=== PATIENT | female | born 1995 | race Two or more races ===

== ENCOUNTER 2024-03-16 13:04 | Emergency (ER) | payer OTHER ==
[~2024-03-16] VITALS: Ht 172.7 cm; Wt 127.0 kg
[2024-03-16 14:36] LABS: HEMATOCRIT 36.2 % (36.0-45.00); HEMOGLOBIN 11.8 g/dL (12.0-15.00); MEAN CELL VOLUME 76.1 fL (80.00-100.00); MEAN CORPUSCULAR HEMOGLOBIN 24.7 pg (27.00-32.0); MEAN CORPUSCULAR HGB CONC 32.5 g/dl (32.0-36.0); PLATELET COUNT 401 K/uL (150-450); RED BLOOD COUNT 4.76 M/uL (4.00-6.00); RED CELL DISTRIBUTION WIDTH 16.8 % (11.5-14.5)
[2024-03-16 15:11] LABS: PH,URINE 5.5 (5.0-8.0); URINE APPEARANCE Clear; URINE BILIRRUBIN Negative (NEGATIVE); URINE BLOOD Large; URINE COLOR Yellow; URINE GLUCOSE Negative (NEGATIVE); URINE LEUKOCYTE Negative; URINE NITRATE Negative; URINE PROTEIN Negative (NEGATIVE); URINE UROBILINOGEN 0.2 E.U./dl
[2024-03-16 15:15] LABS: URINE BACTERIA 1022.9 uL (0.0-1933); URINE EPITHELIAL CELLS 17.6 uL (0.0-38.8); URINE RBC 19.5 uL (0.0-20.8)
== END 2024-03-16 18:33 | disposition home or self-care (01) ==
LOC: ER 13:06
PROVIDERS: Emergency Medicine
DX: O20.8 Other hemorrhage in early pregnancy (principal); J45.909 Unspecified asthma, uncomplicated; G40.802 Other epilepsy, not intractable, without status epilepticus; E16.1 Other hypoglycemia; D64.89 Other specified anemias

== ENCOUNTER 2024-11-06 08:01 | Emergency (ER) | payer OTHER ==
[~2024-11-06] VITALS: Ht 172.7 cm; Wt 131.5 kg
[2024-11-06 09:45] LABS: HEMATOCRIT 35.6 % (36.0-45.00); HEMOGLOBIN 11.2 g/dL (12.0-15.00); MEAN CELL VOLUME 74.9 fL (80.00-100.00); MEAN CORPUSCULAR HEMOGLOBIN 23.5 pg (27.00-32.0); MEAN CORPUSCULAR HGB CONC 31.4 g/dl (32.0-36.0); PLATELET COUNT 385 K/uL (150-450); RED BLOOD COUNT 4.75 M/uL (4.00-6.00); RED CELL DISTRIBUTION WIDTH 18.1 % (11.5-14.5)
[2024-11-06 09:53] LABS: PH,URINE 7.5 (5.0-8.0); URINE APPEARANCE Cloudy; URINE BILIRRUBIN Negative (NEGATIVE); URINE BLOOD Moderate; URINE COLOR Yellow; URINE GLUCOSE Negative (NEGATIVE); URINE KETONE Negative (NEGATIVE); URINE LEUKOCYTE Small; URINE NITRATE Negative; URINE PROTEIN Negative (NEGATIVE); URINE UROBILINOGEN 0.2 E.U./dl
[2024-11-06 10:02] LABS: URINE BACTERIA 277.7 uL (0.0-1933); URINE EPITHELIAL CELLS 78.6 uL (0.0-38.8); URINE RBC 6.9 uL (0.0-20.8); URINE WBC 157.6 uL (0.0-23.2)
[2024-11-06 10:09] LABS: ALBUMIN 3.3 gm/dL (3.4-5.0); BILIRUBIN TOTAL 0.23 mg/dL (0.3-1.2); CALCIUM 9.1 mg/dL (8.5-10.1); CREATININE SERUM 0.74 mg/dL (0.55-1.02); GFR 93.45; GLOBULINA 3.8 G/DL (2.4-3.5); POTASSIUM 3.99 mEq/L (3.5-5.1); TOTAL PROTEIN 7.1 gm/dL (6.4-8.2)
[2024-11-06 10:13] LABS: URINE CAST 0.14 uL (0.0-1.40)
[2024-11-06 10:14] LABS: URINE YEAST MANY /hpf
== END 2024-11-06 14:23 | disposition home or self-care (01) ==
LOC: ER 08:04
PROVIDERS: Emergency Medicine
DX: O20.9 Hemorrhage in early pregnancy, unspecified (principal); O23.41 Unspecified infection of urinary tract in pregnancy, first trimester; N39.0 Urinary tract infection, site not specified; Z3A.01 Less than 8 weeks gestation of pregnancy; R53.81 Other malaise; Z20.822 Contact with and (suspected) exposure to COVID-19; Z91.013 Allergy to seafood

== ENCOUNTER 2025-01-03 12:18 | Emergency (ER) | payer OTHER ==
[~2025-01-03] VITALS: Ht 172.7 cm; Wt 137.9 kg
[2025-01-03] MEDS ORDERED: PRENATABS FA T1 EACH PO (12:49)
[2025-01-03] MEDS ORDERED: XOLAIR300 MG/2 M SQ (12:50)
[2025-01-03] MEDS ORDERED: FAMOTIDINE/PF 20 MG in 0.9 % SODIUM CHLORIDE 8 ML IV PUSH STA (13:06)
[2025-01-03] MEDS ORDERED: DIPHENOXYLATE HCL/ATROPINE 1 UDTAB TABLET PO ONE (13:15)
[2025-01-03] MEDS ORDERED: 0.9 % SODIUM CHLORIDE 1,000 ML IV SCH (13:15)
[2025-01-03] MEDS ORDERED: ONDANSETRON HCL 2 MG/ML VIAL IV ONE (13:15)
[2025-01-03] MEDS ORDERED: FAMOTIDINE/PF 20 MG/2 ML VIAL ONE (13:47)
[2025-01-03] MEDS ORDERED: ONDANSETRON HCL 2 MG/ML VIAL ONE (13:47)
[2025-01-03 14:46] LABS: BASO % 0.4 % (0.1-1.2); EOS # 0.14 (0.04-0.54); EOS % 1.5 % (0.7-7.0); HEMATOCRIT 38.4 % (34.1-44.9); HEMOGLOBIN 12.3 g/dL (11.2-15.7); LYMPH # 1.21 (1.18-3.74); LYMPH % 12.6 % (19.3-53.1); MONO # 0.53 (0.24-0.82); MONO % 5.5 % (4.7-12.5); NEUT # 7.64 (1.56-6.13); NEUT % 79.6 % (34.0-71.1); PLATELET COUNT 325 K/uL (163-369); RED BLOOD COUNT 5.12 M/uL (3.93-5.22); RED CELL DISTRIBUTION WIDTH 18.2 % (11.6-14.4)
[2025-01-03 15:30] LABS: COVID-19 AG NEGATIVE (NEGATIVE)
[2025-01-03 15:35] LABS: INFLUENZA A AG NEGATIVE (NEGATIVE)
[2025-01-03] MEDS ORDERED: ZITHROMAX500 MG PO (15:42)
[2025-01-03] MEDS ORDERED: TUSSIN100 MG/51 PO (15:42)
[2025-01-03 15:52] LABS: ALBUMIN 3.1 gm/dL (3.4-5.0); BILIRUBIN TOTAL 0.16 mg/dL (0.3-1.2); CALCIUM 8.9 mg/dL (8.5-10.1); CREATININE SERUM 0.55 mg/dL (0.55-1.02); GFR 131.61; GLOBULINA 4.4 G/DL (2.4-3.5); POTASSIUM 3.73 mEq/L (3.5-5.1); TOTAL PROTEIN 7.5 gm/dL (6.4-8.2)
== END 2025-01-03 16:09 | disposition home or self-care (01) ==
LOC: ER 12:35
PROVIDERS: General Practice
DX: O98.511 Other viral diseases complicating pregnancy, first trimester (principal); B34.9 Viral infection, unspecified; Z91.018 Allergy to other foods; Z3A.13 13 weeks gestation of pregnancy; Z20.822 Contact with and (suspected) exposure to COVID-19

== ENCOUNTER 2025-02-13 08:49 | Emergency (ER) | payer OTHER ==
[~2025-02-13] VITALS: Ht 172.7 cm; Wt 145.1 kg
[~2025-02-13 08:49] MED LIST: PRENATABS FA T1 EACH PO; TUSSIN100 MG/51 PO; XOLAIR300 MG/2 M SQ; ZITHROMAX500 MG PO
[2025-02-13] MEDS ORDERED: PROMETHAZINE HCL 25 MG/ML AMPUL ONE (09:13)
[2025-02-13] MEDS ORDERED: BUTALB/ACETAMINOPHEN/CAFFEINE 1 TAB TABLET PO ONE ×2 (09:13→09:15)
[2025-02-13] MEDS ORDERED: DEXAMETHASONE SODIUM PHOSPHATE 4 MG/ML VIAL ONE (09:14)
[2025-02-13] MEDS ORDERED: PROMETHAZINE HCL 25 MG/ML AMPUL IM ONE (09:15)
[2025-02-13] MEDS ORDERED: DEXAMETHASONE SODIUM PHOSPHATE 4 MG/ML VIAL IM ONE (09:15)
[2025-02-13 09:53] LABS: BASO % 0.3 % (0.1-1.2); EOS % 1.5 % (0.7-7.0); HEMATOCRIT 34.4 % (34.1-44.9); HEMOGLOBIN 11.4 g/dL (11.2-15.7); LYMPH # 1.87 (1.18-3.74); LYMPH % 13.7 % (19.3-53.1); MEAN CORPUSCULAR HEMOGLOBIN 25.4 pg (25.6-32.2); MONO # 0.41 (0.24-0.82); NEUT # 11.08 (1.56-6.13); NEUT % 81.1 % (34.0-71.1); PLATELET COUNT 324 K/uL (163-369); RED BLOOD COUNT 4.49 M/uL (3.93-5.22); RED CELL DISTRIBUTION WIDTH 16.8 % (11.6-14.4)
[2025-02-13 10:47] LABS: COVID-19 AG NEGATIVE (NEGATIVE)
[2025-02-13 10:48] LABS: INFLUENZA A AG NEGATIVE (NEGATIVE); INFLUENZA B AG NEGATIVE (NEGATIVE)
[2025-02-13] MEDS ORDERED: BUTALBIT-ACETA1 EACH PO (10:51)
== END 2025-02-13 11:43 | disposition home or self-care (01) ==
LOC: ER 08:49
PROVIDERS: General Practice
DX: O26.892 Other specified pregnancy related conditions, second trimester (principal); R51.9 Headache, unspecified; Z3A.19 19 weeks gestation of pregnancy; Z20.822 Contact with and (suspected) exposure to COVID-19; Z91.013 Allergy to seafood

== ENCOUNTER → 2025-02-20 12:07 | Outpatient (CLI) | payer OTHER ==
[~2025-02-20 12:07] MED LIST changes: +BUTALBIT-ACETA1 EACH PO
== END | disposition home or self-care (01) ==
LOC: PRENATAL 12:07
PROVIDERS: ATTEND Obstetrics & Gynecology Maternal & Fetal Medicine
DX: O44.00 Complete placenta previa NOS or without hemorrhage, unspecified trimester (principal); O99.210 Obesity complicating pregnancy, unspecified trimester

== ENCOUNTER 2025-02-26 15:59 | Emergency (ER) | payer OTHER ==
[~2025-02-26] VITALS: Ht 172.7 cm; Wt 142.4 kg
[2025-02-26] MEDS ORDERED: METHYLPREDNISOLONE SOD SUCC 125 MG VIAL IV ONE (17:15)
[2025-02-26] MEDS ORDERED: LEVALBUTEROL HCL 1.25 MG/3 ML SOLUTION IH SCH (17:15)
[2025-02-26] MEDS ORDERED: GUAIFENESIN/DEXTROMETHORPHAN 100MG/10ML BLIST.PACK PO ONE (17:15)
[2025-02-26 17:52] LABS: BASO % 0.3 % (0.1-1.2); EOS # 0.20 (0.04-0.54); EOS % 1.3 % (0.7-7.0); LYMPH # 2.11 (1.18-3.74); LYMPH % 13.3 % (19.3-53.1); MEAN PLATELET VOLUME 9.00 fl (9.4-12.4); MONO # 0.63 (0.24-0.82); MONO % 4.0 % (4.7-12.5); NEUT # 12.82 (1.56-6.13); NEUT % 80.7 % (34.0-71.1); RED CELL DISTRIBUTION WIDTH 16.3 % (11.6-14.4)
[2025-02-26 18:18] LABS: ALT/SGPT 31.0 U/L (12-78); AST/SGOT 15.0 U/L (15-37); BILIRUBIN TOTAL 0.29 mg/dL (0.3-1.2); BUN CREA RATIO 14.0 (7.0-25.0); CREATININE SERUM 0.5 mg/dL (0.55-1.02); GFR 146.91; GLOBULINA 4.5 G/DL (2.4-3.5); GLUCOSE FASTING 91.0 mg/dL (65-100); OSMOLALITY SERUM 277.0 MOSM/KG (275-295)
[2025-02-26 18:41] LABS: COVID-19 AG NEGATIVE (NEGATIVE)
[2025-02-26] MEDS ORDERED: XOPENEX CO1.25 MG/0. IH (19:40)
[2025-02-26] MEDS ORDERED: MEDROLPACK PO (19:40)
[2025-02-26] MEDS ORDERED: TUSNEL LIQUID178 ML PO (19:40)
[2025-02-26 23:15] LABS: ABG PH 7.448 (7.35-7.45); ABG PO2 84.9 mmHg (80-100); BICARBONATE 21.6 mmol/l (23-25)
[2025-02-26 23:16] LABS: o2 21 %
== END 2025-02-26 19:56 | disposition home or self-care (01) ==
LOC: ER 15:59
PROVIDERS: General Practice
DX: J45.909 Unspecified asthma, uncomplicated (principal); R05.9 Cough, unspecified; R06.02 Shortness of breath; Z20.822 Contact with and (suspected) exposure to COVID-19; Z91.013 Allergy to seafood

== ENCOUNTER 2025-03-14 08:18 | Emergency (ER) | payer OTHER ==
[~2025-03-14] VITALS: Ht 172.7 cm; Wt 140.6 kg
[~2025-03-14 08:18] MED LIST changes: +MEDROLPACK PO; +TUSNEL LIQUID178 ML PO; +XOPENEX CO1.25 MG/0. IH
[2025-03-14] MEDS ORDERED: FAMOTIDINE/PF 20 MG in 0.9 % SODIUM CHLORIDE 8 ML IV PUSH STA (08:57)
[2025-03-14] MEDS ORDERED: ONDANSETRON HCL 2 MG/ML VIAL IV ONE (09:00)
[2025-03-14] MEDS ORDERED: LACTOBACILLUS ACIDOPHILUS 1 CAP CAP PO ONE ×2 (09:00→09:06)
[2025-03-14] MEDS ORDERED: 0.9 % SODIUM CHLORIDE 1,000 ML IV SCH (09:00)
[2025-03-14] MEDS ORDERED: DIPHENOXYLATE HCL/ATROPINE 1 UDTAB TABLET PO ONE (09:00)
[2025-03-14] MEDS ORDERED: ONDANSETRON HCL 2 MG/ML VIAL ONE (09:05)
[2025-03-14] MEDS ORDERED: FAMOTIDINE/PF 20 MG/2 ML VIAL ONE (09:06)
[2025-03-14 09:35] LABS: BASO % 0.2 % (0.1-1.2); EOS # 0.09 (0.04-0.54); EOS % 0.7 % (0.7-7.0); LYMPH # 1.63 (1.18-3.74); LYMPH % 12.2 % (19.3-53.1); MEAN PLATELET VOLUME 9.10 fl (9.4-12.4); MONO # 0.50 (0.24-0.82); MONO % 3.7 % (4.7-12.5); NEUT # 11.08 (1.56-6.13); NEUT % 82.8 % (34.0-71.1); RED CELL DISTRIBUTION WIDTH 15.8 % (11.6-14.4)
[2025-03-14 10:17] LABS: ALT/SGPT 21.0 U/L (12-78); AST/SGOT 9.0 U/L (15-37); BILIRUBIN TOTAL 0.31 mg/dL (0.3-1.2); BUN CREA RATIO 11.0 (7.0-25.0); CREATININE SERUM 0.53 mg/dL (0.55-1.02); GFR 137.36; GLOBULINA 4.1 G/DL (2.4-3.5); GLUCOSE FASTING 95.0 mg/dL (65-100); OSMOLALITY SERUM 275.0 MOSM/KG (275-295)
[2025-03-14 11:33] LABS: URINE APPEARANCE Clear; URINE BILIRRUBIN Negative (NEGATIVE); URINE BLOOD Negative; URINE COLOR Yellow; URINE GLUCOSE Negative (NEGATIVE); URINE KETONE Negative (NEGATIVE); URINE LEUKOCYTE Trace; URINE NITRATE Negative; URINE PROTEIN Negative (NEGATIVE); URINE UROBILINOGEN 0.2 E.U./dl
[2025-03-14 11:42] LABS: URINE BACTERIA 231.4 uL (0.0-1933); URINE EPITHELIAL CELLS 5.8 uL (0.0-38.8); URINE WBC 11.8 uL (0.0-23.2)
[2025-03-14 11:44] LABS: URINE CAST 0.00 uL (0.0-1.40); URINE RBC 0.7 uL (0.0-20.8)
[2025-03-14] MEDS ORDERED: PEPCID AC20 MG PO (13:16)
[2025-03-14] MEDS ORDERED: ONDANSETRON ODT8 MG PO (13:16)
== END 2025-03-14 13:33 | disposition home or self-care (01) ==
LOC: ER 08:18
PROVIDERS: General Practice
DX: R11.2 Nausea with vomiting, unspecified (principal); K52.89 Other specified noninfective gastroenteritis and colitis; Z91.013 Allergy to seafood

== ENCOUNTER 2025-03-28 10:17 | Outpatient (CLI) | payer OTHER ==
[~2025-03-28] VITALS: Ht 172.7 cm; Wt 141.1 kg
[2025-03-28 09:42] VITALS: BP 124/79; O2SAT 100
[~2025-03-28 10:17] MED LIST changes: +ONDANSETRON ODT8 MG PO; +PEPCID AC20 MG PO
[2025-03-28] MEDS ORDERED: CHILDREN'S ASPI81 MG PO (10:21)
[2025-03-28] MEDS ORDERED: PRENATAL TABLE1 EAC1 PO (10:21)
[2025-03-28] MEDS ORDERED: XOLAIR300 MG/2 M IJ (10:26)
[2025-03-28] MEDS ORDERED: RINGERS SOLUTION,LACTATED 1,000 ML IV SCH (10:30)
[2025-03-28] MEDS ORDERED: CEFAZOLIN SODIUM 1,000 MG VIAL IV ONE (11:00)
[2025-03-28 12:21] LABS: URINE APPEARANCE Clear; URINE BILIRRUBIN Negative (NEGATIVE); URINE BLOOD Negative; URINE COLOR Yellow; URINE GLUCOSE Negative (NEGATIVE); URINE KETONE Negative (NEGATIVE); URINE LEUKOCYTE Trace; URINE NITRATE Negative; URINE PROTEIN Negative (NEGATIVE); URINE UROBILINOGEN 1.0 E.U./dl
[2025-03-28 12:24] VITALS: BP 131/80; O2SAT 100
[2025-03-28 12:24] LABS: URINE BACTERIA 1134.0 uL (0.0-1933); URINE EPITHELIAL CELLS 57.9 uL (0.0-38.8); URINE WBC 27.8 uL (0.0-23.2)
[2025-03-28 12:25] LABS: URINE CAST 0.14 uL (0.0-1.40); URINE RBC 1.1 uL (0.0-20.8)
[2025-03-28 12:25] LABS: BASO % 0.2 % (0.1-1.2); EOS # 0.12 (0.04-0.54); EOS % 1.0 % (0.7-7.0); LYMPH # 1.75 (1.18-3.74); LYMPH % 14.2 % (19.3-53.1); MEAN PLATELET VOLUME 9.60 fl (9.4-12.4); MONO # 0.56 (0.24-0.82); MONO % 4.5 % (4.7-12.5); NEUT # 9.81 (1.56-6.13); NEUT % 79.5 % (34.0-71.1); RED CELL DISTRIBUTION WIDTH 15.9 % (11.6-14.4)
[2025-03-28 12:46] LABS: ALT/SGPT 20.0 U/L (12-78); AST/SGOT 10.0 U/L (15-37); BILIRUBIN TOTAL 0.17 mg/dL (0.3-1.2); BUN CREA RATIO 12.0 (7.0-25.0); CREATININE SERUM 0.57 mg/dL (0.55-1.02); GFR 126.3; GLOBULINA 3.3 G/DL (2.4-3.5); GLUCOSE FASTING 116.0 mg/dL (65-100); OSMOLALITY SERUM 278.0 MOSM/KG (275-295)
[2025-03-28] MEDS ORDERED: FERROUS SULFAT325 M2 PO (13:00)
[2025-03-28] MEDS ORDERED: CEPHALEXIN500 M1 PO (13:00)
[2025-03-28 14:20] VITALS: BP 124/79
[2025-03-28] MEDS ORDERED: CEFAZOLIN SODIUM 1,000 MG VIAL IV SCH (18:00)
== END 2025-03-28 14:29 | disposition home or self-care (01) ==
LOC: OBS/DEL 10:17
PROVIDERS: ATTEND Specialist
DX: O26.892 Other specified pregnancy related conditions, second trimester (principal); R10.2 Pelvic and perineal pain; Z3A.25 25 weeks gestation of pregnancy; O26.849 Uterine size-date discrepancy, unspecified trimester; O60.00 Preterm labor without delivery, unspecified trimester

== ENCOUNTER 2025-04-19 15:01 | Outpatient (CLI) | payer OTHER ==
[~2025-04-19 15:01] MED LIST changes: +CEPHALEXIN500 M1 PO; +CHILDREN'S ASPI81 MG PO; +FERROUS SULFAT325 M2 PO; +PRENATAL TABLE1 EAC1 PO; +XOLAIR300 MG/2 M IJ
== END 2025-04-19 15:02 | disposition home or self-care (01) ==
LOC: PRENATAL 15:01
PROVIDERS: ATTEND Obstetrics & Gynecology Maternal & Fetal Medicine
DX: O26.849 Uterine size-date discrepancy, unspecified trimester (principal); O36.8130 Decreased fetal movements, third trimester, not applicable or unspecified; O99.210 Obesity complicating pregnancy, unspecified trimester; O99.019 Anemia complicating pregnancy, unspecified trimester; Z3A.29 29 weeks gestation of pregnancy

== ENCOUNTER 2025-05-18 11:12 | Emergency (ER) | payer OTHER ==
[~2025-05-18] VITALS: Ht 172.7 cm; Wt 142.9 kg
[~2025-05-18 11:12] MED LIST changes: +HUMULIN N100 UNIT/2 SUBCUTANEO; +HUMULIN R100 UNIT/1 SUBCUTANEO; +INSULIN SYRING1 EA29 SUBCUTANEO
[2025-05-18 13:50] LABS: BASO % 0.2 % (0.1-1.2); EOS # 0.08 (0.04-0.54); EOS % 0.6 % (0.7-7.0); LYMPH # 1.71 (1.18-3.74); LYMPH % 13.5 % (19.3-53.1); MEAN PLATELET VOLUME 9.40 fl (9.4-12.4); MONO # 0.57 (0.24-0.82); MONO % 4.5 % (4.7-12.5); NEUT # 10.25 (1.56-6.13); NEUT % 80.8 % (34.0-71.1); RED CELL DISTRIBUTION WIDTH 15.3 % (11.6-14.4)
[2025-05-18 14:12] LABS: URINE APPEARANCE Clear; URINE BILIRRUBIN Negative (NEGATIVE); URINE BLOOD Negative; URINE COLOR Yellow; URINE GLUCOSE Negative (NEGATIVE); URINE LEUKOCYTE Trace; URINE NITRATE Negative; URINE PROTEIN Negative (NEGATIVE); URINE UROBILINOGEN 1.0 E.U./dl
[2025-05-18 14:16] LABS: URINE BACTERIA 484.7 uL (0.0-1933); URINE EPITHELIAL CELLS 14.2 uL (0.0-38.8); URINE RBC 3.9 uL (0.0-20.8); URINE WBC 17.9 uL (0.0-23.2)
[2025-05-18 14:25] LABS: URINE CAST 0.14 uL (0.0-1.40); URINE KETONE 40 (NEGATIVE)
[2025-05-18 14:39] LABS: COVID-19 AG NEGATIVE (NEGATIVE)
[2025-05-18 14:41] LABS: ALT/SGPT 26.0 U/L (12-78); AST/SGOT 14.0 U/L (15-37); BILIRUBIN TOTAL 0.28 mg/dL (0.3-1.2); BUN CREA RATIO 13.0 (7.0-25.0); CREATININE SERUM 0.46 mg/dL (0.55-1.02); GFR 161.75; GLOBULINA 4.1 G/DL (2.4-3.5); GLUCOSE FASTING 78.0 mg/dL (65-100); OSMOLALITY SERUM 276.0 MOSM/KG (275-295)
== END 2025-05-18 16:22 | disposition home or self-care (01) ==
LOC: ER 11:12
PROVIDERS: General Practice
DX: R53.1 Weakness (principal); Z91.018 Allergy to other foods; Z91.013 Allergy to seafood; Z91.040 Latex allergy status; J06.9 Acute upper respiratory infection, unspecified; Z20.822 Contact with and (suspected) exposure to COVID-19

== ENCOUNTER 2025-05-29 15:17 | Outpatient (CLI) | payer OTHER | END 2025-05-29 15:18 | disposition home or self-care (01) | LOC: PRENATAL 15:17 | PROVIDERS: ATTEND Obstetrics & Gynecology Maternal & Fetal Medicine | DX: O26.849 Uterine size-date discrepancy, unspecified trimester (principal); O36.8130 Decreased fetal movements, third trimester, not applicable or unspecified; O99.210 Obesity complicating pregnancy, unspecified trimester; Z3A.34 34 weeks gestation of pregnancy ==

== ENCOUNTER 2025-06-25 17:09 | Outpatient (CLI) | payer OTHER ==
[~2025-06-25] VITALS: Ht 172.7 cm; Wt 145.1 kg
[2025-06-25 16:24] VITALS: BP 118/72; O2SAT 100
[2025-06-25] MEDS ORDERED: RINGERS SOLUTION,LACTATED 1,000 ML IV SCH (17:45)
[2025-06-25 17:59] LABS: BASO % 0.3 % (0.1-1.2); EOS # 0.07 (0.04-0.54); EOS % 0.6 % (0.7-7.0); LYMPH # 1.59 (1.18-3.74); LYMPH % 13.3 % (19.3-53.1); MEAN PLATELET VOLUME 9.70 fl (9.4-12.4); MONO # 0.75 (0.24-0.82); MONO % 6.3 % (4.7-12.5); NEUT # 9.45 (1.56-6.13); NEUT % 78.9 % (34.0-71.1); RED CELL DISTRIBUTION WIDTH 14.5 % (11.6-14.4)
[2025-06-25 18:00] LABS: URINE APPEARANCE Cloudy; URINE BILIRRUBIN Negative (NEGATIVE); URINE BLOOD Small; URINE COLOR Yellow; URINE GLUCOSE Negative (NEGATIVE); URINE KETONE Trace (NEGATIVE); URINE LEUKOCYTE Moderate; URINE NITRATE Negative; URINE PROTEIN Trace (NEGATIVE); URINE UROBILINOGEN 1.0 E.U./dl
[2025-06-25 18:03] LABS: URINE BACTERIA 1357.0 uL (0.0-1933); URINE EPITHELIAL CELLS 49.3 uL (0.0-38.8); URINE RBC 67.6 uL (0.0-20.8); URINE WBC 174.1 uL (0.0-23.2)
[2025-06-25 18:16] LABS: URINE CAST 0.00 uL (0.0-1.40)
[2025-06-25 18:17] LABS: URINE CRYSTALS MANY /HPF; URINE SPERM FEW
[2025-06-25 18:22] LABS: ALT/SGPT 16.0 U/L (12-78); AST/SGOT 10.0 U/L (15-37); BILIRUBIN TOTAL 0.22 mg/dL (0.3-1.2); BUN CREA RATIO 17.0 (7.0-25.0); CREATININE SERUM 0.59 mg/dL (0.55-1.02); GFR 121.37; GLOBULINA 3.3 G/DL (2.4-3.5); GLUCOSE FASTING 119.0 mg/dL (65-100); INR < 0.93; OSMOLALITY SERUM 281.0 MOSM/KG (275-295)
[2025-06-25 19:34] VITALS: BP 124/81
[2025-06-25 23:29] VITALS: BP 126/82
[2025-06-26 04:25] VITALS: BP 124/81
[2025-06-26] MEDS ORDERED: ACETAMINOPHEN 500 MG GEL..CAP PO PRN (06:00)
[2025-06-26 06:23] VITALS: BP 120/79; O2SAT 97
[2025-06-26 12:17] VITALS: BP 113/75; O2SAT 98
[2025-06-26 12:37] VITALS: BP 113/75
== END 2025-06-26 12:39 | disposition home or self-care (01) ==
LOC: OBS/DEL 17:09
PROVIDERS: ATTEND Specialist
DX: O26.893 Other specified pregnancy related conditions, third trimester (principal); R51.9 Headache, unspecified; O26.843 Uterine size-date discrepancy, third trimester; O36.8130 Decreased fetal movements, third trimester, not applicable or unspecified; O99.213 Obesity complicating pregnancy, third trimester; Z3A.37 37 weeks gestation of pregnancy

== ENCOUNTER 2025-06-28 05:10 | Inpatient (IN) | payer OTHER ==
[~2025-06-28] VITALS: Ht 172.7 cm; Wt 3.2 kg
[2025-06-28] MEDS ORDERED: RINGERS SOLUTION,LACTATED 1,000 ML IV SCH (05:30)
[2025-06-28 05:43] VITALS: BP 139/80
[2025-06-28] MEDS ORDERED: OXYTOCIN 20 UNITS/500ML RL PIGGYBAG IV ONE (06:31)
[2025-06-28 06:41] LABS: URINE APPEARANCE Cloudy; URINE BILIRRUBIN Negative (NEGATIVE); URINE BLOOD Moderate; URINE COLOR Yellow; URINE GLUCOSE Negative (NEGATIVE); URINE KETONE 15 (NEGATIVE); URINE LEUKOCYTE Moderate; URINE NITRATE Negative; URINE PROTEIN Trace (NEGATIVE); URINE UROBILINOGEN 1.0 E.U./dl
[2025-06-28] MEDS ORDERED: OXYTOCIN 500 ML IV SCH (06:45)
[2025-06-28 06:46] LABS: URINE EPITHELIAL CELLS 133.2 uL (0.0-38.8); URINE RBC 16.2 uL (0.0-20.8); URINE WBC 164.5 uL (0.0-23.2)
[2025-06-28 06:50] LABS: BASO % 0.3 % (0.1-1.2); EOS # 0.07 (0.04-0.54); EOS % 0.4 % (0.7-7.0); LYMPH # 1.78 (1.18-3.74); LYMPH % 11.4 % (19.3-53.1); MEAN PLATELET VOLUME 10.00 fl (9.4-12.4); MONO # 0.54 (0.24-0.82); MONO % 3.5 % (4.7-12.5); NEUT # 13.11 (1.56-6.13); NEUT % 83.8 % (34.0-71.1); RED CELL DISTRIBUTION WIDTH 14.4 % (11.6-14.4)
[2025-06-28 06:56] LABS: URINE CAST 0.14 uL (0.0-1.40); URINE CRYSTALS FEW /HPF; URINE YEAST FEW /hpf
[2025-06-28 07:27] LABS: ALT/SGPT 18.0 U/L (12-78); AST/SGOT 16.0 U/L (15-37); BILIRUBIN TOTAL 0.35 mg/dL (0.3-1.2); BUN CREA RATIO 13.0 (7.0-25.0); CREATININE SERUM 0.69 mg/dL (0.55-1.02); GFR 101.3; GLOBULINA 3.7 G/DL (2.4-3.5); GLUCOSE FASTING 193.0 mg/dL (65-100); OSMOLALITY SERUM 280.0 MOSM/KG (275-295)
[2025-06-28 07:31] LABS: INR < 0.93
[2025-06-28 07:50] VITALS: BP 111/76
[2025-06-28 12:21] VITALS: BP 148/82
[2025-06-28] MEDS ORDERED: MORPHINE SULFATE 4 MG/ML CARTRIDGE IV PRN ×2 (12:45→18:45)
[2025-06-28 15:22] VITALS: BP 151/68
[2025-06-28] MEDS ORDERED: OXYTOCIN 10 UNITS/ML VIAL ONE (16:25)
[2025-06-28] MEDS ORDERED: ERYTHROMYCIN BASE OPHT 1GM EACH TUBE OP ONE (16:25)
[2025-06-28] MEDS ORDERED: CEFAZOLIN SODIUM 1,000 MG VIAL ONE (17:32)
[2025-06-28] MEDS ORDERED: CEFAZOLIN SODIUM 1,000 MG VIAL IV SCH (20:00)
[2025-06-28 22:40] VITALS: BP 150/70
[2025-06-29 00:49] VITALS: BP 140/85
[2025-06-29 02:55] LABS: BASO % 0.2 % (0.1-1.2); EOS # 0.04 (0.04-0.54); EOS % 0.2 % (0.7-7.0); LYMPH # 1.00 (1.18-3.74); LYMPH % 5.3 % (19.3-53.1); MEAN PLATELET VOLUME 10.00 fl (9.4-12.4); MONO # 0.57 (0.24-0.82); MONO % 3.0 % (4.7-12.5); NEUT # 17.10 (1.56-6.13); NEUT % 90.9 % (34.0-71.1); RED CELL DISTRIBUTION WIDTH 14.5 % (11.6-14.4)
[2025-06-29 04:30] VITALS: BP 130/87
[2025-06-29] MEDS ORDERED: ACETAMINOPHEN 500 MG GEL..CAP PO PRN (06:45)
[2025-06-29 08:00] VITALS: BP 136/84
[2025-06-29 17:11] VITALS: BP 135/85
[2025-06-30] VITALS: BP 137/80
[2025-06-30 09:17] VITALS: BP 130/80
[2025-06-30 20:19] VITALS: BP 124/83
[2025-07-01 00:27] VITALS: BP 124/83
[2025-07-01 08:00] VITALS: BP 140/85
== END 2025-07-01 14:40 | disposition home or self-care (01) | DRG 788 ==
LOC: LDR 05:10 → OB/GYN 05:10 → LDR 08:16 → OB/GYN 20:09
PROVIDERS: ADMIT Specialist; ATTEND Specialist
PROC: 4A1HXCZ Monitoring of Products of Conception, Cardiac Rate, External Approach (ICD-10-PCS; 2025-06-28)
PROC: 10D00Z1 Extraction of Products of Conception, Low, Open Approach (ICD-10-PCS; principal; 2025-06-28 16:30)
DX: O82 Encounter for cesarean delivery without indication (principal); O62.0 Primary inadequate contractions; Z3A.38 38 weeks gestation of pregnancy; Z37.0 Single live birth